=== PATIENT | female | born 1980 | race Caucasian/White ===

== ENCOUNTER 2017-04-30 13:51 | Inpatient (IN) | payer OTHER ==
[2017-04-30 15:19] LABS: ADD MAN DIFF? NO
[2017-04-30 15:20] LABS: BASOPHILS % 0.4 % (0.0-2.0); EOSINOPHILS # 0.1 10^3/ul (0.0-0.5); EOSINOPHILS % 0.7 % (0.0-7.0); HEMATOCRIT 34.9 % (37.0-47.0); HEMOGLOBIN 11.3 g/dl (12.0-16.0); LYMPHOCYTES # 1.6 10^3/ul (0.8-2.9); LYMPHOCYTES % 19.2 % (15.0-51.0); MEAN CORPUSCULAR HEMOGLOBIN 26.2 pg (29.0-33.0); MEAN CORPUSCULAR HGB CONC 32.4 g/dl (32.0-37.0); MEAN PLATELET VOLUME 10.2 fl (7.4-10.4); MONOCYTE # 0.6 10^3/ul (0.3-0.9); MONOCYTES % 6.9 % (0.0-11.0); NEUTROPHIL # 6.1 10^3/ul (1.6-7.5); NEUTROPHILS % 72.6 % (39.0-77.0); PLATELET COUNT 258 10^3/UL (140-415); RED BLOOD COUNT 4.31 10^6/ul (4.20-5.40); RED CELL DISTRIBUTION WIDTH 17.1 % (11.5-14.5)
[2017-04-30 15:20] LABS: WHITE BLOOD COUNT 8.4 10^3/ul (4.8-10.8)
[2017-04-30 15:49] LABS: ALANINE AMINOTRANSFERASE 30 IU/L (13-69); ALBUMIN 4.4 g/dl (3.3-4.9); ALBUMIN/GLOBULIN RATIO 1.76; ALKALINE PHOSPHATASE 63 IU/L (42-121); ANION GAP 13 (8-16); ASPARTATE AMINO TRANSFERASE 32 IU/L (15-46); BILIRUBIN,INDIRECT 1.1 mg/dl (0-1.1); BILIRUBIN,TOTAL 1.1 mg/dl (0.2-1.3); CARBON DIOXIDE 24 mmol/L (21-31); CHLORIDE 109 mmol/L (97-110); GLUCOSE 84 mg/dl (70-220); TOTAL PROTEIN 6.9 g/dl (6.1-8.1)
[2017-04-30 15:55] LABS: BLOOD UREA NITROGEN 8 mg/dl (7-20); CREATININE 0.65 mg/dl (0.44-1.00); POTASSIUM 4.2 mmol/L (3.5-5.1); SODIUM 142 mmol/L (135-144)
[2017-04-30] MEDS ORDERED: NEOSTIGMINE 3 MG/3 ML SYRINGE (15:57)
[2017-04-30] MEDS ORDERED: MIDAZOLAM 1 MG/ML 2 ML INJ (15:57)
[2017-04-30] MEDS ORDERED: GLYCOPYRROLATE 0.4 MG INJ (15:57)
[2017-04-30] MEDS ORDERED: ROCURONIUM 50 MG INJ (15:57)
[2017-04-30] MEDS ORDERED: PROPOFOL 20 ML (15:57)
[2017-04-30] MEDS ORDERED: CEFAZOLIN 1 GM INJ (15:57)
[2017-04-30] MEDS ORDERED: ONDANSETRON 4 MG INJ (15:58)
[2017-04-30] MEDS ORDERED: DEXAMETHASONE 4 MG/ML 1 ML INJ (15:58)
[2017-04-30] MEDS ORDERED: HYDROmorphONE 0.5 MG/0.5 ML SYG IV (16:30)
[2017-04-30] MEDS ORDERED: BISACODYL 10 MG SUPP PR (16:30)
[2017-04-30] MEDS ORDERED: AL HYDROX/MG HYDROX/SIMETH 30 ML CUP PO (16:30)
[2017-04-30] MEDS ORDERED: NALOXONE (0.4 MG/ML) INJ IV (16:30)
[2017-04-30] MEDS ORDERED: DIPHENHYDRAMINE 50 MG INJ IV ×2 (16:30→18:00)
[2017-04-30] MEDS ORDERED: ONDANSETRON 4 MG INJ IV (16:30)
[2017-04-30] MEDS: CEFAZOLIN 1 GM/50 ML (PMX) 50 ML IVPB (16:58)
[2017-04-30] MEDS: CA CHLORIDE 10% 10 ML SYRINGE (17:48)
[2017-04-30] MEDS: BUPIVACAINE 0.5%/EPI (SDV) 30 ML INJ (17:48)
[2017-04-30] MEDS: SURGIFOAM POWDER 1 GM KIT (17:49)
[2017-04-30] MEDS: THROMBIN 5000 UNIT VIAL (17:49)
[2017-04-30] MEDS: POLYMYXIN/BACITRACIN 1L IRRIG (17:49)
[2017-04-30] MEDS ORDERED: LABETALOL HCL 20MG INJ IV (18:00)
[2017-04-30] MEDS ORDERED: TRIMETHOBENZAMIDE 100 MG/ML VIAL IM (18:00)
[2017-04-30] MEDS ORDERED: ALBUTEROL 0.083% (NEB) 2.5 MG/3 ML AMP HHN (18:00)
[2017-04-30] MEDS ORDERED: EPHEDrine SULFATE 50 MG/5 ML SYG IV (18:00)
[2017-04-30] MEDS ORDERED: hydrALAzine 20 MG INJ IV (18:00)
[2017-04-30] MEDS ORDERED: HYDROmorphONE (0.2 MG/ML) 10ML SYG IV ×2 (18:00)
[2017-04-30] MEDS ORDERED: OXYCODONE/ACETAMINOPHEN (5/325) TAB PO ×2 (18:00)
[2017-04-30] MEDS ORDERED: IPRATROPIUM (NEB) 0.5 MG/2.5 ML AMP HHN (18:00)
[2017-04-30] MEDS ORDERED: MIDAZOLAM 1 MG/ML 2 ML INJ IV (18:00)
[2017-04-30] MEDS ORDERED: FENTAnyl 50 MCG/ML VIAL IV ×3 (18:00)
[2017-04-30] MEDS ORDERED: FENTAnyl 50 MCG/ML VIAL (18:24)
[2017-04-30] MEDS ORDERED: SUGAMMADEX SODIUM 200 MG/2 ML VIAL IV (18:48)
[2017-04-30] MEDS: HYDROmorphONE 0.2 MG/ML PCA IV (19:21)
[2017-04-30] MEDS: MEPERIDINE 25 MG INJ IV (19:25)
[2017-04-30] MEDS: ONDANSETRON 4 MG INJ IV (19:25)
[2017-04-30] MEDS: HYDROmorphONE (0.2 MG/ML) 10ML SYG IV (19:25)
[2017-04-30] MEDS: DOCUSATE SODIUM 100 MG CAP PO (20:54)
[2017-04-30] MEDS: CEPASTAT LOZENGE MT (20:54)
[2017-04-30] MEDS: D5W-0.45 NACL + KCL 20 MEQ 1,000 ML IV (20:55)
[2017-05-01] MEDS: HYDROmorphONE 0.2 MG/ML PCA IV ×4 (00:20→22:57)
[2017-05-01] MEDS: CEFAZOLIN 1 GM/50 ML (PMX) 50 ML IVPB ×2 (00:21→08:03)
[2017-05-01] MEDS: D5W-0.45 NACL + KCL 20 MEQ 1,000 ML IV ×3 (02:14→22:14)
[2017-05-01 05:55] LABS: ADD MAN DIFF? NO
[2017-05-01 06:00] LABS: BASOPHILS % 0.3 % (0.0-2.0); EOSINOPHILS % 0.1 % (0.0-7.0); HEMATOCRIT 31.5 % (37.0-47.0); HEMOGLOBIN 10.3 g/dl (12.0-16.0); LYMPHOCYTES # 1.6 10^3/ul (0.8-2.9); LYMPHOCYTES % 15.4 % (15.0-51.0); MEAN CORPUSCULAR HEMOGLOBIN 26.3 pg (29.0-33.0); MEAN CORPUSCULAR HGB CONC 32.7 g/dl (32.0-37.0); MEAN CORPUSCULAR VOLUME 80.4 fl (82.0-101.0); MEAN PLATELET VOLUME 10.2 fl (7.4-10.4); MONOCYTE # 0.7 10^3/ul (0.3-0.9); MONOCYTES % 7.3 % (0.0-11.0); NEUTROPHIL # 7.8 10^3/ul (1.6-7.5); NEUTROPHILS % 76.6 % (39.0-77.0); PLATELET COUNT 227 10^3/UL (140-415); RED BLOOD COUNT 3.92 10^6/ul (4.20-5.40); RED CELL DISTRIBUTION WIDTH 17.2 % (11.5-14.5)
[2017-05-01 06:00] LABS: WHITE BLOOD COUNT 10.2 10^3/ul (4.8-10.8)
[2017-05-01 06:33] LABS: ANION GAP 12 (8-16); BLOOD UREA NITROGEN 4 mg/dl (7-20); CALCIUM 9.1 mg/dl (8.4-10.2); CARBON DIOXIDE 26 mmol/L (21-31); CHLORIDE 107 mmol/L (97-110); CREATININE 0.64 mg/dl (0.44-1.00); GLUCOSE 121 mg/dl (70-220); MAGNESIUM 1.8 mg/dl (1.7-2.5); POTASSIUM 4.1 mmol/L (3.5-5.1); SODIUM 141 mmol/L (135-144)
[2017-05-01] MEDS: CARISOPRODOL 350 MG TAB PO ×3 (06:42→21:25)
[2017-05-01] MEDS ORDERED: ALPRAZOLAM 0.5 MG TAB PO (08:00)
[2017-05-01] MEDS: KETOROLAC 30 MG INJ IV (09:09)
[2017-05-01] MEDS: DOCUSATE SODIUM 100 MG CAP PO ×2 (09:11→21:26)
[2017-05-01] MEDS ORDERED: HYDROCODONE/APAP (10/325) TAB PO ×2 (10:00)
[2017-05-01] MEDS: ACETAMINOPHEN 325 MG TAB PO (17:41)
[2017-05-02] MEDS: ACETAMINOPHEN 325 MG TAB PO (04:06)
[2017-05-02 05:48] LABS: ADD MAN DIFF? NO
[2017-05-02 05:55] LABS: HEMOGLOBIN 9.5 g/dl (12.0-16.0); LYMPHOCYTES % 23.6 % (15.0-51.0); MEAN CORPUSCULAR HEMOGLOBIN 26.4 pg (29.0-33.0); MEAN CORPUSCULAR HGB CONC 32.8 g/dl (32.0-37.0); MEAN CORPUSCULAR VOLUME 80.6 fl (82.0-101.0); MEAN PLATELET VOLUME 10.8 fl (7.4-10.4); PLATELET COUNT 191 10^3/UL (140-415)
[2017-05-02 05:55] LABS: WHITE BLOOD COUNT 7.3 10^3/ul (4.8-10.8)
[2017-05-02 05:56] LABS: BASOPHILS % 0.1 % (0.0-2.0); EOSINOPHILS # 0.1 10^3/ul (0.0-0.5); EOSINOPHILS % 0.8 % (0.0-7.0); LYMPHOCYTES # 1.7 10^3/ul (0.8-2.9); MONOCYTE # 0.9 10^3/ul (0.3-0.9); MONOCYTES % 12.2 % (0.0-11.0); NEUTROPHIL # 4.6 10^3/ul (1.6-7.5)
[2017-05-02] MEDS: CARISOPRODOL 350 MG TAB PO ×2 (05:57→13:09)
[2017-05-02] MEDS: HYDROmorphONE 0.2 MG/ML PCA IV (05:58)
[2017-05-02 06:22] LABS: ANION GAP 10 (8-16); BLOOD UREA NITROGEN 3 mg/dl (7-20); CALCIUM 8.8 mg/dl (8.4-10.2); CARBON DIOXIDE 28 mmol/L (21-31); CHLORIDE 105 mmol/L (97-110); CREATININE 0.71 mg/dl (0.44-1.00); GLUCOSE 92 mg/dl (70-220); MAGNESIUM 1.8 mg/dl (1.7-2.5); PHOSPHORUS 2.9 mg/dl (2.5-4.9); POTASSIUM 4.1 mmol/L (3.5-5.1); SODIUM 139 mmol/L (135-144)
[2017-05-02] MEDS: D5W-0.45 NACL + KCL 20 MEQ 1,000 ML IV (08:14)
[2017-05-02] MEDS: HYDROCODONE/APAP (10/325) TAB PO ×2 (08:16→12:16)
[2017-05-02] MEDS ORDERED: HYDROCODONE/APAP (10/325) TAB PO (08:30)
== END 2017-05-02 14:27 | disposition home or self-care (01) | DRG 520 ==
LOC: REC 13:51 → MS1 20:25
PROC: 0SB20ZZ Excision of Lumbar Vertebral Disc, Open Approach (ICD-10-PCS; principal; 2017-04-30 15:30)
DX: M51.16 Intervertebral disc disorders with radiculopathy, lumbar region (principal); R51 Headache; Z72.0 Tobacco use; Z98.84 Bariatric surgery status
CPT/HCPCS: 72020; 80048; 80053; 83735; 84100; 85025; 86999; 97116; 97163